=== PATIENT | female | born 1965 | race Caucasian/White ===

== ENCOUNTER 2016-10-05 02:31 | Inpatient (IN) | payer BC, OTHER ==
[~2016-10-05] VITALS: Ht 165.1 cm; Wt 133.5 kg
[~2016-10-05 02:31] MED LIST: CARISOPRODOL 3350 MG PO; METFORMIN; NORCO 5-325 TA1 EACH PO
[2016-10-05 02:35] VITALS: BP 144/85
[2016-10-05] MEDS ORDERED: METFORMIN HCL500 MG PO (02:40)
[2016-10-05] MEDS ORDERED: SIMVASTATIN40 MG PO (02:41)
[2016-10-05] MEDS ORDERED: LISINOPRIL10 MG PO (02:41)
[2016-10-05 03:13] LABS: ABSOLUTE NEUTROPHILS 10.9 thou/uL (1.4-8.2); BASOPHILS 0.6 % (0.0-2.0); EOSINOPHILS 2.6 % (0.0-3.0); HEMATOCRIT 38.4 % (37.0-47.0); HEMOGLOBIN 12.5 gm/dL (12.0-15.0); LYMPHOCYTES 12.8 % (24.0-44.0); MCH 27.6 pg (26.0-34.0); MCHC 32.6 g/dL (28.0-37.0); MCV 84.9 fL (80.0-100.0); MONOCYTES 5.5 % (1.0-8.0); PLATELET COUNT 348 thou/uL (150-400); POLYS 78.5 % (36.0-66.0); RBC 4.52 mil/uL (4.20-5.00); RDW 14.4 % (10.5-14.5); WBC 13.9 thou/uL (4.0-11.0)
[2016-10-05 03:26] LABS: MANUAL DIFF NO
[2016-10-05 03:47] LABS: CALCIUM 8.9 mg/dL (8.5-10.1)
[2016-10-05 03:48] LABS: POTASSIUM 5.2 mmol/L (3.5-5.1)
[2016-10-05 05:25] VITALS: BP 131/66
[2016-10-05 05:35] VITALS: BP 152/85
[2016-10-05] MEDS ORDERED: AMBIEN 5 MG TABL5 M1 PO (07:45)
[2016-10-05] MEDS ORDERED: PROZAC20 MG PO (07:46)
[2016-10-05] MEDS ORDERED: WELLBUTRIN XL300 MG PO (07:48)
[2016-10-05 08:00] VITALS: BP 128/67
[2016-10-05 16:00] VITALS: BP 14/71
[2016-10-05 19:45] VITALS: BP 121/63
[2016-10-06 03:57] VITALS: BP 94/50
[2016-10-06 06:21] LABS: HEMATOCRIT 34.9 % (37.0-47.0); HEMOGLOBIN 11.5 gm/dL (12.0-15.0); MCH 27.8 pg (26.0-34.0); MCHC 32.9 g/dL (28.0-37.0); MCV 84.6 fL (80.0-100.0); PLATELET COUNT 345 thou/uL (150-400); RBC 4.12 mil/uL (4.20-5.00); RDW 14.4 % (10.5-14.5); WBC 15.5 thou/uL (4.0-11.0)
[2016-10-06 06:31] LABS: MANUAL DIFF YES
[2016-10-06 06:43] LABS: CALCIUM 8.7 mg/dL (8.5-10.1); MAGNESIUM 1.6 mg/dL (1.8-2.4); POTASSIUM 4.3 mmol/L (3.5-5.1)
[2016-10-06 08:00] VITALS: BP 139/54
[2016-10-06 08:17] LABS: ABSOLUTE NEUTROPHILS 14.7 thou/uL (1.4-8.2); TOTAL CELL COUNT 100
[2016-10-06 08:18] LABS: ANISOCYTOSIS SLIGHT
[2016-10-06] MEDS ORDERED: PREDNISONE 10 M10 MG PO (10:38)
[2016-10-06] MEDS ORDERED: TOPROL XL25 MG PO (10:39)
[2016-10-06] MEDS ORDERED: CLEOCIN HCL150 MG PO (10:40)
[2016-10-06 10:50] VITALS: BP 139/54
== END 2016-10-06 14:00 | disposition home or self-care (01) | DRG 153 ==
LOC: ER 02:31 → 4S 05:14 → EROBS 05:14 → 4S 05:27
PROVIDERS: Emergency Medicine; Nurse Practitioner
DX: J04.30 Supraglottitis, unspecified, without obstruction (principal); G89.29 Other chronic pain; E87.5 Hyperkalemia; D72.829 Elevated white blood cell count, unspecified; E11.9 Type 2 diabetes mellitus without complications; K02.9 Dental caries, unspecified; I10 Essential (primary) hypertension; E78.5 Hyperlipidemia, unspecified; E78.00 Pure hypercholesterolemia, unspecified; R13.10 Dysphagia, unspecified; F32.9 Major depressive disorder, single episode, unspecified; Z90.49 Acquired absence of other specified parts of digestive tract; Z88.0 Allergy status to penicillin; Z82.3 Family history of stroke; Z80.9 Family history of malignant neoplasm, unspecified; Z79.899 Other long term (current) drug therapy
CPT/HCPCS: 10100